=== PATIENT | male | born 2000 | race Two or more races ===

== ENCOUNTER 2022-11-06 05:00 | Emergency (ER) | payer SELFPAY ==
[2022-11-06] MEDS ORDERED: Sodium Chloride 0.9% 2.5 ML Syringe FLUSH PRN (05:32)
[2022-11-06] MEDS ORDERED: Sodium Chloride 0.9% 10 ML Syringe FLUSH PRN (05:32)
[2022-11-06 05:49] LABS: CARBON DIOXIDE,CO2 27.4 mmol/L (21.0-32.0); POTASSIUM,K 4.2 mmol/L (3.5-5.1)
[2022-11-06] MEDS ORDERED: Sodium Chloride 0.9% 1,000 ML IV ONE ×2 (06:09→06:58)
== END 2022-11-06 07:38 | disposition home or self-care (01) ==
LOC: MW.ED 05:00
DX: E11.9 Type 2 diabetes mellitus without complications (principal); R07.9 Chest pain, unspecified; Z79.84 Long term (current) use of oral hypoglycemic drugs
CPT/HCPCS: 36415; 71045; 80053; 81001; 82009; 83690; 84484; 85025; 85379; 93005; 96360; 99285; J3490; J7030; 93010; 99283